=== PATIENT | female | born 1980 | race Caucasian/White ===

== ENCOUNTER → 2018-12-20 | Outpatient (CLI) | payer BC ==
[2013-04-02 12:58] VITALS: BP 129/43
== END ==
LOC: LAB 08:54
DX: G89.29 Other chronic pain (principal)

== ENCOUNTER → 2019-04-10 | Outpatient (CLI) | payer BC ==
[2013-04-02 12:58] VITALS: BP 129/43
== END ==
LOC: LAB 13:26
DX: G89.29 Other chronic pain (principal)

== ENCOUNTER 2019-06-10 16:21 | Emergency (ER) | payer BC ==
[~2019-06-10] VITALS: Ht 170.2 cm; Wt 75.0 kg
[2019-06-10] MEDS ORDERED: HYDROXYZINE HCL25 M1 PO (16:33)
[2019-06-10] MEDS ORDERED: WELLBUTRIN XL300 M1 PO (16:33)
[2019-06-10 17:25] LABS: EOS # 0.2 (0.04-0.40); EOS % 2.1 % (1.0-5.0); HEMATOCRIT 42.8 % (37.0-47.0); HEMOGLOBIN 14.4 g/dL (12.5-16.0); LYMPH# 2.6 (1.50-4.00); MEAN CELL VOLUME 90 fl (78-100); MEAN CORPUSCULAR HEMOGLOBIN 30 pg (27-31); MEAN CORPUSCULAR HGB CONC 34 g/dL (33-37); MEAN PLATELET VOLUME 10.1 fl (7.4-10.4); MONO # 0.8 (0.20-0.80); NEU # 4.5 (1.40-6.50); PLATELET COUNT 268 K/mm3 (130-400); RED BLOOD COUNT 4.76 M/mm3 (4.10-5.30); RED CELL DISTRIBUTION WIDTH 12.8 % (11.5-14.5); WHITE BLOOD COUNT 8.2 K/mm3 (4.8-10.8)
[2019-06-10 17:33] LABS: POTASSIUM 3.5 mmol/L (3.5-5.1)
[2019-06-10 17:34] LABS: CALCIUM 8.8 mg/dL (8.3-10.5)
[2019-06-10 17:38] LABS: URINE APPEARANCE CLEAR; URINE BILIRUBIN NEGATIVE (NEGATIVE); URINE BLOOD NEGATIVE (NEGATIVE); URINE COLOR YELLOW; URINE GLUCOSE NEGATIVE (NEGATIVE); URINE KETONE NEGATIVE (NEGATIVE); URINE LEUKOCYTE ESTERASE NEGATIVE (NEGATIVE); URINE NITRATE NEGATIVE (NEGATIVE); URINE PROTEIN(semi-quant) 1+ mg/dL (NEGATIVE); URINE UROBILINOGEN NORMAL (NORMAL)
[2019-06-10 17:39] LABS: URINE MUCUS PRESENT (NOT PRESENT)
[2019-06-10] MEDS ORDERED: PERCOCET 325 MG1 TA2 PO (19:55)
[2019-06-10 20:16] VITALS: BP 117/74
== END 2019-06-10 20:16 | disposition home or self-care (01) ==
LOC: ED 16:21
PROVIDERS: Family Medicine
DX: R10.9 Unspecified abdominal pain (principal); F17.210 Nicotine dependence, cigarettes, uncomplicated; Z87.442 Personal history of urinary calculi
CPT/HCPCS: J1885; J3010; J7030; Q9967

== ENCOUNTER 2020-01-23 10:42 | Emergency (ER) | payer OTHER ==
[~2020-01-23] VITALS: Ht 170.2 cm; Wt 59.1 kg
[~2020-01-23 10:42] MED LIST: HYDROXYZINE HCL25 M1 PO; PERCOCET 325 MG1 TA2 PO; WELLBUTRIN XL300 M1 PO
[2020-01-23 11:26] LABS: EOS # 0.1 (0.04-0.40); EOS % 1.1 % (1.0-5.0); HEMATOCRIT 43.1 % (37.0-47.0); HEMOGLOBIN 14.2 g/dL (12.5-16.0); LYMPH# 2.1 (1.50-4.00); MEAN CELL VOLUME 94 fl (78-100); MEAN CORPUSCULAR HEMOGLOBIN 31 pg (27-31); MEAN CORPUSCULAR HGB CONC 33 g/dL (33-37); MEAN PLATELET VOLUME 9.8 fl (7.4-10.4); MONO # 0.7 (0.20-0.80); PLATELET COUNT 234 K/mm3 (130-400); RED BLOOD COUNT 4.61 M/mm3 (4.10-5.30); RED CELL DISTRIBUTION WIDTH 12.2 % (11.5-14.5)
[2020-01-23] MEDS ORDERED: TRAMADOL 50 MG TAB PO (11:32)
[2020-01-23] MEDS ORDERED: HALCION 0.0.125 MG/T PO (11:34)
[2020-01-23 11:35] LABS: POTASSIUM 3.5 mmol/L (3.5-5.1); SODIUM 141 mmol/L (136-145)
[2020-01-23 11:36] LABS: CALCIUM 8.5 mg/dL (8.3-10.5)
[2020-01-23 11:38] LABS: GLUCOSE 86 mg/dL (65-105); TOTAL PROTEIN 6.6 g/dL (6.4-8.3)
[2020-01-23 11:39] LABS: CARBON DIOXIDE 24 mmol/L (22-29)
[2020-01-23 11:40] LABS: TOTAL BILIRUBIN 0.5 mg/dL (0.2-1.2)
[2020-01-23 11:43] LABS: AST-SGOT 10 U/L (5-34)
[2020-01-23 11:44] LABS: ALT/SGPT 9 U/L (0-55)
[2020-01-23 11:51] LABS: TROPONIN-I < 0.03 ng/mL (<0.030)
[2020-01-23 12:34] LABS: D-DIMER 0.1 mg/L FEU (0.15-0.50)
[2020-01-23 12:35] LABS: URINE APPEARANCE CLOUDY; URINE BILIRUBIN NEGATIVE (NEGATIVE); URINE BLOOD 50 ery/uL (NEGATIVE); URINE COLOR YELLOW; URINE GLUCOSE NEGATIVE (NEGATIVE); URINE KETONE NEGATIVE (NEGATIVE); URINE LEUKOCYTE ESTERASE NEGATIVE (NEGATIVE); URINE NITRATE NEGATIVE (NEGATIVE); URINE PROTEIN(semi-quant) TRACE mg/dL (NEGATIVE); URINE UROBILINOGEN NORMAL (NORMAL)
[2020-01-23 12:36] LABS: URINE MUCUS PRESENT (NOT PRESENT)
[2020-01-23] MEDS ORDERED: INDERAL LA80 MG PO (13:04)
[2020-01-23 13:17] VITALS: BP 112/68
== END 2020-01-23 13:42 | disposition home or self-care (01) ==
LOC: ED 10:42
PROVIDERS: Physician Assistant
DX: R00.2 Palpitations (principal); R55 Syncope and collapse; R51.9 Headache, unspecified; F32.9 Major depressive disorder, single episode, unspecified; G89.29 Other chronic pain; F17.210 Nicotine dependence, cigarettes, uncomplicated; Z88.0 Allergy status to penicillin; Z88.2 Allergy status to sulfonamides; Z88.8 Allergy status to other drugs, medicaments and biological substances
CPT/HCPCS: J7030

== ENCOUNTER 2020-02-27 18:02 | Emergency (ER) | payer OTHER ==
[~2020-02-27 18:02] MED LIST changes: +HALCION 0.0.125 MG/T PO; +INDERAL LA80 MG PO; +TRAMADOL 50 MG TAB PO
[2020-02-27 18:43] LABS: EOS # 0.3 (0.04-0.40); EOS % 2.8 % (1.0-5.0); HEMATOCRIT 42.1 % (37.0-47.0); HEMOGLOBIN 13.4 g/dL (12.5-16.0); LYMPH# 2.9 (1.50-4.00); MEAN CELL VOLUME 96 fl (78-100); MEAN CORPUSCULAR HEMOGLOBIN 30 pg (27-31); MEAN CORPUSCULAR HGB CONC 32 g/dL (33-37); MEAN PLATELET VOLUME 9.4 fl (7.4-10.4); NEU # 6.3 (1.40-6.50); PLATELET COUNT 277 K/mm3 (130-400); RED BLOOD COUNT 4.41 M/mm3 (4.10-5.30); RED CELL DISTRIBUTION WIDTH 12.2 % (11.5-14.5); WHITE BLOOD COUNT 10.5 K/mm3 (4.8-10.8)
[2020-02-27 18:52] LABS: ALBUMIN 4.1 g/dL (3.5-5.0)
[2020-02-27 18:53] LABS: CALCIUM 8.4 mg/dL (8.3-10.5)
[2020-02-27 18:54] LABS: TOTAL PROTEIN 6.8 g/dL (6.4-8.3)
[2020-02-27 18:56] LABS: TOTAL BILIRUBIN 0.4 mg/dL (0.2-1.2)
[2020-02-27 19:40] LABS: URINE APPEARANCE HAZY; URINE BILIRUBIN NEGATIVE (NEGATIVE); URINE COLOR AMBER; URINE GLUCOSE NEGATIVE (NEGATIVE); URINE KETONE NEGATIVE (NEGATIVE); URINE NITRATE NEGATIVE (NEGATIVE); URINE PROTEIN(semi-quant) 1+ mg/dL (NEGATIVE); URINE UROBILINOGEN NORMAL (NORMAL)
[2020-02-27 19:41] LABS: URINE BLOOD 250 ery/uL (NEGATIVE); URINE LEUKOCYTE ESTERASE NEGATIVE (NEGATIVE)
[2020-02-27] MEDS ORDERED: FLAGYL500 M1 PO (21:25)
[2020-02-27] MEDS ORDERED: CIPRO 500MG TA500 MG PO (21:26)
[2020-02-27 21:36] VITALS: BP 125/68
== END 2020-02-27 21:36 | disposition home or self-care (01) ==
LOC: ED 18:02
PROVIDERS: Nurse Practitioner Family
DX: A59.03 Trichomonal cystitis and urethritis (principal); N13.30 Unspecified hydronephrosis; N20.1 Calculus of ureter; F32.9 Major depressive disorder, single episode, unspecified; F41.9 Anxiety disorder, unspecified; F17.210 Nicotine dependence, cigarettes, uncomplicated; Z87.442 Personal history of urinary calculi
CPT/HCPCS: J1885; J2270; J2405; J7030; Q9967

== ENCOUNTER 2020-02-28 15:14 | Emergency (ER) | payer OTHER ==
[~2020-02-28 15:14] MED LIST changes: +CIPRO 500MG TA500 MG PO; +FLAGYL500 M1 PO
[2020-02-28 15:45] LABS: EOS # 0.2 (0.04-0.40); EOS % 1.6 % (1.0-5.0); HEMATOCRIT 39.9 % (37.0-47.0); HEMOGLOBIN 13.4 g/dL (12.5-16.0); LYMPH# 2.2 (1.50-4.00); MEAN CELL VOLUME 95 fl (78-100); MEAN CORPUSCULAR HEMOGLOBIN 32 pg (27-31); MEAN CORPUSCULAR HGB CONC 34 g/dL (33-37); MEAN PLATELET VOLUME 9.7 fl (7.4-10.4); MONO # 1.4 (0.20-0.80); PLATELET COUNT 226 K/mm3 (130-400); RED BLOOD COUNT 4.22 M/mm3 (4.10-5.30); WHITE BLOOD COUNT 13.6 K/mm3 (4.8-10.8)
[2020-02-28 15:48] LABS: NEU # 9.7 (1.40-6.50)
[2020-02-28 15:54] LABS: ALBUMIN 3.8 g/dL (3.5-5.0)
[2020-02-28 15:55] LABS: POTASSIUM 3.6 mmol/L (3.5-5.1)
[2020-02-28 15:56] LABS: CALCIUM 8.1 mg/dL (8.3-10.5)
[2020-02-28 15:57] LABS: TOTAL PROTEIN 6.3 g/dL (6.4-8.3)
[2020-02-28 15:59] LABS: TOTAL BILIRUBIN 0.3 mg/dL (0.2-1.2)
[2020-02-28 17:02] VITALS: BP 117/67
== END 2020-02-28 17:03 | disposition home or self-care (01) ==
LOC: ED 15:14
PROVIDERS: Physician Assistant
DX: N20.0 Calculus of kidney (principal); F32.9 Major depressive disorder, single episode, unspecified; F17.210 Nicotine dependence, cigarettes, uncomplicated; Z88.0 Allergy status to penicillin; Z88.2 Allergy status to sulfonamides; Z79.899 Other long term (current) drug therapy
CPT/HCPCS: J0696; J1885; J2405